=== PATIENT | male | born 1975 | race Caucasian/White ===

== ENCOUNTER 2017-07-14 22:43 | Emergency (ER) | payer OTHER ==
[~2017-07-14] VITALS: Ht 185.4 cm; Wt 93.0 kg
[2017-07-14] MEDS ORDERED: MONTELUKAST TAB 10MG (22:55)
[2017-07-14] MEDS ORDERED: RABIES IMMUNE GLOBULIN/PF 150 UNIT/ML VIAL IM ONE (23:15)
[2017-07-14] MEDS ORDERED: RABIES VACCINE (PCEC)/PF 2.5 UNIT ML IM ONE ×2 (23:15→23:39)
[2017-07-14] MEDS ORDERED: TDAP DIPH,PERTUSS,TET VAC/PF 0.5 ML DISP.SYRIN IM ONE ×2 (23:15→23:40)
[2017-07-14] MEDS ORDERED: RABIES IMMUNE GLOBULIN/PF 300 UNIT/ML 2 ML VIAL IM ONE ×3 (23:28→23:58)
--- NOTE | 2017-07-15 01:25 | NUR ---
Patient discharged to home in stable conditon. Written and verbal after care instructions given. Patient verbalizes understanding of instructions.
== END 2017-07-15 01:29 | disposition home or self-care (01) ==
LOC: ER 22:43
DX: S61.252A Open bite of right middle finger without damage to nail, initial encounter (principal); W55.51XA Bitten by raccoon, initial encounter; Y93.89 Activity, other specified; Y92.89 Other specified places as the place of occurrence of the external cause; Y99.8 Other external cause status
CPT/HCPCS: 70030-TC; 90376; 90715; A4663

== ENCOUNTER 2017-07-17 18:19 | Emergency (ER) | payer OTHER ==
[~2017-07-17] VITALS: Ht 185.4 cm; Wt 90.7 kg
[~2017-07-17 18:19] MED LIST: MONTELUKAST TAB 10MG
--- NOTE | 2017-07-17 18:40 | NUR ---
SEEN AND EVAL BY DR BEGUM.
[2017-07-17] MEDS ORDERED: RABIES VACCINE (PCEC)/PF 2.5 UNIT ML IM ONE ×2 (18:45→19:46)
--- NOTE | 2017-07-17 19:47 | NUR ---
VERBAL AFTER CARE INFORMATION PROVIDED BY DR BEGUM. PATIENT VERBALIZED UNDERSTANDING. LEFT FACILITY IN NO ACUTE DISTRESS.
[2017-07-17 19:50] VITALS: BP 120/75
== END 2017-07-17 19:50 | disposition home or self-care (01) ==
LOC: ER 18:21
DX: Z23 Encounter for immunization (principal); J45.909 Unspecified asthma, uncomplicated; W55.51XA Bitten by raccoon, initial encounter; Y93.89 Activity, other specified; Y92.89 Other specified places as the place of occurrence of the external cause; Y99.8 Other external cause status
CPT/HCPCS: A4663